=== PATIENT | male | born 1995 | race Caucasian/White ===

== ENCOUNTER 2019-02-27 20:22 | Emergency (ER) | payer MEDICAID ==
[~2019-02-27] VITALS: Ht 185.4 cm; Wt 102.1 kg
[2019-02-27] MEDS ORDERED: CEPHALEXIN500 M1 PO (21:49)
== END 2019-02-27 21:54 | disposition home or self-care (01) ==
LOC: ED 20:22
DX: S91.312A Laceration without foreign body, left foot, initial encounter (principal); S91.112A Laceration without foreign body of left great toe without damage to nail, initial encounter; Z91.040 Latex allergy status; W22.8XXA Striking against or struck by other objects, initial encounter; Y93.89 Activity, other specified; Y92.89 Other specified places as the place of occurrence of the external cause; Y99.8 Other external cause status

== ENCOUNTER 2019-03-03 14:20 | Emergency (ER) | payer MEDICAID ==
[~2019-03-03] VITALS: Ht 185.4 cm; Wt 99.8 kg
[~2019-03-03 14:20] MED LIST: CEPHALEXIN500 M1 PO
[2019-03-03 14:22] VITALS: BP 153/81
[2019-03-03] MEDS ORDERED: SEPTDS PO (14:45)
[2019-03-03] MEDS ORDERED: ANTIBIOTIC28.4 GM T (14:51)
== END 2019-03-03 15:31 | disposition home or self-care (01) ==
LOC: ED 14:20
DX: S91.312D Laceration without foreign body, left foot, subsequent encounter (principal); Z48.01 Encounter for change or removal of surgical wound dressing; W22.8XXD Striking against or struck by other objects, subsequent encounter

== ENCOUNTER 2019-03-11 15:49 | Emergency (ER) | payer MEDICAID ==
[~2019-03-11] VITALS: Ht 185.4 cm; Wt 97.5 kg
[~2019-03-11 15:49] MED LIST changes: +ANTIBIOTIC28.4 GM T; +SEPTDS PO
[2019-03-11 15:50] VITALS: BP 136/61
== END 2019-03-11 16:05 | disposition home or self-care (01) ==
LOC: ED 15:49
DX: S91.312D Laceration without foreign body, left foot, subsequent encounter (principal); W22.8XXD Striking against or struck by other objects, subsequent encounter

== ENCOUNTER 2019-04-17 13:20 | Emergency (ER) | payer OTHER ==
[~2019-04-17] VITALS: Ht 187.9 cm; Wt 97.5 kg
[2019-04-17 13:21] VITALS: BP 133/82
[2019-04-17 14:19] LABS: BASO % 0.3 % (0.0-1.0); EOS # 0.3 10*3/uL (0.0-0.4); EOS % 3.2 % (1.0-4.0); HEMATOCRIT 48.6 % (42.0-52.0); HEMOGLOBIN 16.7 g/dl (14.0-18.0); LYMPH % 21.8 % (27.0-41.0); MEAN CELL VOLUME 84.5 fl (80.0-94.0); MEAN CORPUSCULAR HGB CONC 34.4 g/dl (33.0-37.0); MEAN PLATELET VOLUME 10.3 fl (9.6-12.3); MONO % 10.4 % (3.0-9.0); NEUT # 5.8 10*3/uL (2.3-7.9); NEUT % 63.8 % (47.0-73.0); PLATELET COUNT AUTOMATED 311 10*3/uL (130-400); RED BLOOD COUNT 5.75 10*6/uL (4.50-5.90); RED CELL DISTRI WIDTH 12.8 % (0-14.5); WHITE BLOOD COUNT 9.1 10*3/uL (4.8-10.8)
[2019-04-17 14:34] LABS: ALBUMIN 4.4 gm/dl (3.1-4.5); ALKALINE PHOSPHATASE 71 U/L (45-117); BUN 13 mg/dl (7-24); CHLORIDE 104 mmol/L (98-107); CREATININE 0.76 mg/dL (0.70-1.30); SGOT/AST 21 IU/L (3-35); SGPT/ALT 27 U/L (12-78); SODIUM 138 mmol/L (136-145); TOTAL PROTEIN 8.1 gm/dL (6.4-8.2)
[2019-04-17] MEDS ORDERED: CLINDAMYCIN HC300 MG PO (14:58)
[2019-04-17] MEDS ORDERED: CEPHALEXIN500 M1 PO (14:58)
== END 2019-04-17 15:08 | disposition left against medical advice (07) ==
LOC: ED 13:20
PROVIDERS: Nurse Practitioner Family
DX: S91.312D Laceration without foreign body, left foot, subsequent encounter (principal); L03.116 Cellulitis of left lower limb; X58.XXXD Exposure to other specified factors, subsequent encounter

== ENCOUNTER → 2021-08-22 | Outpatient (CLI) | payer OTHER ==
[~2021-08-22] MED LIST changes: +CLINDAMYCIN HC300 MG PO
== END | disposition home or self-care (01) ==
LOC: COVID19 15:52
PROVIDERS: ATTEND Student in an Organized Health Care Education/Training Program
DX: U07.1 COVID-19 (principal)

== ENCOUNTER → 2021-08-25 | Outpatient (CLI) | payer OTHER | END | disposition home or self-care (01) | LOC: COVID19 17:10 | PROVIDERS: ATTEND Student in an Organized Health Care Education/Training Program | DX: U07.1 COVID-19 (principal) ==